=== PATIENT | male | born 1955 | race Caucasian/White ===

== ENCOUNTER 2019-09-08 23:51 | Emergency (ER) | payer OTHER ==
[~2019-09-08] VITALS: Ht 165.1 cm; Wt 81.6 kg
[~2019-09-08 23:51] MED LIST: BACTRIM DS TAB1 EAC1 ORAL; BENADRYL CRE1 APPLIC TOPIC; CEPHALEXIN500 MG ORAL; HYDROCHLOROTHIA25 MG ORAL; ULTRAM50 MG ORAL
[2019-09-09 00:02] VITALS: BP 167/82
--- NOTE | 2019-09-09 00:02 | NUR ---
ED Nurse Note: Patient walked in to ER due to chest pain on his left side. As per patient, he experienced CP along with difficulty breathing this 2100 and took OTC motrin but it doesnt alleviate the pain. Has medical history of HTN, DM, hyperlipidemia. Pt alert and oriented x4, verbally responsive. No SOB. Breathing even and unlabored. Afebrile. VSS. at bedside.
--- NOTE | 2019-09-09 00:05 | NUR ---
ED Nurse Note: IV line established. Blood and urine collected and sent to lab.
--- NOTE | 2019-09-09 00:09 | NUR ---
ED Nurse Note: Xray at bedside.
--- NOTE | 2019-09-09 00:12 | Emergency Room Report ---
History of Present Illness General Chief Complaint: Chest Pain Source: Patient Present Illness HPI This is a 64-year-old [place] male with a history of high blood pressure, diabetes and hyperlipidemia. He presents with complaint of chest pain. Chest pain is to the left side and radiate to the back. Been on and off for over a week. Last week was a couple of episodes. More frequent this week. And tonight is been constant for about an hour. Usually at night when he is watching TV. Pain is to the left chest. When he is having pain he said he feels short of breath. No diaphoresis. No exertional component. Took some ibuprofen and that helped. Tonight ibuprofen did not help. To his doctor an EKG was normal. He said that he is waiting for authorization to see a outpatient admitting clerk for stress test. Denies any other complaint. Pain is 5 out of 10. Allergies: Coded Allergies: No Known Allergies (Unverified , 03/19/14) Patient History Past Medical History: see triage record, old chart reviewed, DM, HTN Past Surgical History: none Pertinent Family History: none Social History: Denies: smoking Immunizations: other Reviewed Nursing Documentation: PMH: Agreed; PSxH: Agreed Nursing Documentation-PMH Hx Hypertension: Yes Hx Diabetes: Yes Review of Systems Eye: Denies: eye pain, blurred vision ENT: Denies: ear pain, nose congestion, throat swelling Respiratory: Denies: cough, shortness of breath Cardiovascular: Reports: chest pain; Denies: palpitations Gastrointestinal: Denies: abdominal pain, diarrhea, nausea, vomiting Musculoskeletal: Denies: back pain, joint pain Skin: Denies: rash Neurological: Denies: headache, numbness Endocrine: Denies: increased thirst, increased urine Hematologic/Lymphatic: Denies: easy bruising All Other Systems: negative except mentioned in HPI Physical Exam Vital Signs Date Time Temp Pulse Resp B/P (MAP) Pulse Ox O2 Delivery O2 Flow Rate FiO2 09/08/19 23:58 98.6 68 22 149/100 (116) 98 Room Air Vitals with high blood pressure Sp02 EP Interpretation: reviewed, normal General Appearance: well appearing, no apparent distress, alert, obese Head: normocephalic, atraumatic Eyes: bilateral eye PERRL, bilateral eye EOMI ENT: hearing grossly normal, normal pharynx Neck: full range of motion, supple, no meningismus Respiratory: chest non-tender, lungs clear, normal breath sounds Cardiovascular #1: regular rate, rhythm, no murmur Gastrointestinal: normal bowel sounds, non tender, no mass, no organomegaly, no bruit, non-distended Musculoskeletal: back normal, gait/station normal, normal range of motion Psychiatric: mood/affect normal Medical Decision Making Diagnostic Impression: Primary Impression: ACS (acute coronary syndrome) ER Course Patient presents with symptoms concerning for ACS and unstable angina. His chest pain has been episodic but more frequent and longer duration. EKG and labs are unremarkable. Troponin negative. He is pain-free now. Because of his risk factors, will admit for further work-up. Factors include male sex, obesity, hyperlipidemia, high blood pressure, and diabetes. Contacted Dr. Danielson for admission. EKG Diagnostic Results Rate: normal Rhythm: NSR ST Segments: no acute changes ASA given to the pt in ED: Yes Rhythm Strip Diag. Results EP Interpretation: yes Rate: 60 Rhythm: NSR, no PVC's, no ectopy Chest X-Ray Diagnostic Results Chest X-Ray Diagnostic Results : Chest X-Ray Ordered: Yes # of Views/Limited/Complete: 1 View Indication: Chest Pain EP Interpretation: Yes Interpretation: no consolidation, no effusion, no pneumothorax, no acute cardiopulmonary disease Impression: No acute disease Electronically Signed by: Sang Mays MD Last Vital Signs Date Time Temp Pulse Resp B/P (MAP) Pulse Ox O2 Delivery O2 Flow Rate FiO2 09/08/19 23:58 98.6 68 22 149/100 (116) 98 Room Air Status: improved Disposition: ADMITTED INPATIENT Condition: Serious Sang Mays MD Sep 09, 2019 00:12
[2019-09-09] MEDS ORDERED: Nitroglycerin 2% oint pkt TOPIC ONE (00:15)
[2019-09-09] MEDS ORDERED: Aspirin Baby 81mg ORAL ONE (00:15)
[2019-09-09 00:19] LABS: BASOPHILS % (AUTO) 0.8 % (0.0-2.0); HEMATOCRIT 39.9 % (42.0-52.0); HEMOGLOBIN 13.5 G/DL (14.2-18.0); LYMPHOCYTES % (AUTO) 38.7 % (20.0-45.0); MEAN CORPUSCULAR VOLUME 84 FL (80-99); MONOCYTES % (AUTO) 8.3 % (1.0-10.0); NEUTROPHILS % (AUTO) 48.3 % (45.0-75.0); PLATELET COUNT 215 K/UL (150-450); RED BLOOD COUNT 4.73 M/UL (4.70-6.10); RED CELL DISTRIBUTION WIDTH 11.9 % (11.6-14.8); WHITE BLOOD COUNT 7.1 K/UL (4.8-10.8)
[2019-09-09 00:29] LABS: ANION GAP 12 mmol/L (5-15); BLOOD UREA NITROGEN 28 mg/dL (7-18); CALCIUM 9.5 MG/DL (8.5-10.1); CARBON DIOXIDE 26 MMOL/L (21-32); CHLORIDE 103 MMOL/L (98-107); POTASSIUM 3.8 MMOL/L (3.5-5.1); SODIUM 141 MMOL/L (136-145)
[2019-09-09 00:32] LABS: APPEARANCE,URINE CLEAR; BILIRUBIN, URINE NEGATIVE (NEGATIVE); GLUCOSE, URINE (UA) NEGATIVE (NEGATIVE); KETONES,URINE NEGATIVE (NEGATIVE); LEUKOCYTE ESTERASE ,URINE NEGATIVE (NEGATIVE); NITRITE,URINE NEGATIVE (NEGATIVE); PH,URINE 5 (4.5-8.0); PROTEIN,URINE 1+ (NEGATIVE); UROBILINOGEN,URINE NORMAL MG/DL (0.0-1.0)
[2019-09-09 00:33] LABS: ALANINE AMINOTRANSFERASE 62 U/L (12-78); ALBUMIN 3.8 G/DL (3.4-5.0); ALBUMIN/GLOBULIN RATIO 1.2 (1.0-2.7); ALKALINE PHOSPHATASE 73 U/L (46-116); ASPARTATE AMINO TRANSFERASE 25 U/L (15-37); BILIRUBIN,TOTAL 0.3 MG/DL (0.2-1.0)
[2019-09-09 00:34] LABS: COLOR,URINE YELLOW
[2019-09-09] MEDS ORDERED: ASPIRIN81 MG ORAL (00:50)
[2019-09-09] MEDS ORDERED: METFORMIN HCL500 M1 ORAL (00:50)
[2019-09-09] MEDS ORDERED: COZAAR25 MG ORAL (00:50)
[2019-09-09] MEDS ORDERED: ATORVASTATIN CA10 MG ORAL (00:50)
--- NOTE | 2019-09-09 01:38 | Diagnostic Imaging Report ---
EXAM: XR Chest, 1 View CLINICAL HISTORY: CP TECHNIQUE: Frontal view of the chest. COMPARISON: 03 20 14 FINDINGS: Lungs: No consolidation or mass. Pleural space: No acute findings Heart: Unchanged heart size. Bones joints: No acute findings. IMPRESSION: No acute cardiopulmonary process.
--- NOTE | 2019-09-09 01:48 | NUR ---
ED Nurse Note: Report given to Lauren TOM from Tele.
[2019-09-09 02:11] VITALS: BP 126/72
--- NOTE | 2019-09-09 02:11 | NUR ---
AMA: Patient refused to be admitted. As per patient, he feels a lot better and doesnt want to stay. Explained risk and benefits, verbally understood. VSS. No SOB. AMA form signed. ID band and IV line removed. Patient took all the belongings. Accompanied by .
--- NOTE | 2019-09-09 02:42 | NUR ---
NURSE NOTES: Endorsed by ED that pt went AMA. Pt did not come up to 2E unit.
--- NOTE | 2019-09-09 16:15 | Cardiology Report ---
APPROVED REPORT EKG Measurement Heart [id number] Sinus bradycardia Otherwise normal ECG
== END 2019-09-09 02:11 | disposition left against medical advice (07) ==
LOC: EMR 09-09 00:25 → 2E 09-09 01:04 → UNDOADMIN 09-09 01:04 → EDBEDREQ 09-09 01:24 → EMR 09-09 02:11
DX: I24.9 Acute ischemic heart disease, unspecified (principal); E11.9 Type 2 diabetes mellitus without complications; I10 Essential (primary) hypertension; E78.5 Hyperlipidemia, unspecified; E66.9 Obesity, unspecified; Z68.30 Body mass index [BMI] 30.0-30.9, adult
CPT/HCPCS: 36415; 71045; 80053; 81003; 84484; 85025; 93005; 96360; 99284; J7030